=== PATIENT | female | born 1945 | race Caucasian/White ===

== ENCOUNTER 2017-05-05 15:04 | Emergency (ER) | payer MEDICARE, OTHER ==
[2017-05-05 15:06] VITALS: BP 164/78; PULSE 111; RESP 16; TEMP 98.6; O2SAT 98
--- NOTE | 2017-05-05 16:21 | RADRPT ---
EXAM DATE/TIME: 05/05/2017 15:59 [place] COMPARISON: No previous studies available for comparison. INDICATIONS : Syncopal episode 2 days ago. Continued cephalgia and dizziness. RADIATION DOSE: 56.35 CTDIvol (mGy) MEDICAL HISTORY : None SURGICAL HISTORY : None. ENCOUNTER: Initial ACUITY: 1 day PAIN SCALE: 4/10 LOCATION: Bilateral cranial TECHNIQUE: Multiple contiguous axial images were obtained of the head. Using automated exposure control and adj ustment of the mA and/or kV according to patient size, radiation dose was kept as low as reasonably a chievable to obtain optimal diagnostic quality images. DICOM format image data is available electro nically for review and comparison. FINDINGS: CEREBRUM: The ventricles are normal for age. No evidence of midline shift, mass lesion, hemorrhage or acute in farction. No extra-axial fluid collections are seen. Prominent sulci towards the vertex consistent w ith cortical atrophy. POSTERIOR FOSSA: The cerebellum and brainstem are intact. The 4th ventricle is midline. The cerebellopontine angle i s unremarkable. EXTRACRANIAL: The visualized portion of the orbits is intact. SKULL: The calvaria is intact. No evidence of skull fracture. CONCLUSION: Normal examination for a patient of this age. No acute intracranial abnormality. Abdias Taylor MD on May 05, 2017 at 16:17 Board Certified Radiologist. This report was verified electronically.
[2017-05-05 16:29] LABS: AUTOMATED NEUTROPHIL # 4.2 TH/MM3 (1.8-7.7); BASOPHIL % 0.4 % (0.0-2.0); EOSINOPHIL # 0.2 TH/MM3 (0-0.4); EOSINOPHIL % 2.2 % (0.0-4.0); HEMATOCRIT 41.5 % (35.0-46.0); HEMOGLOBIN 14.2 GM/DL (11.6-15.3); LYMPH % 34.7 % (9.0-44.0); LYMPHOCYTE # 2.7 TH/MM3 (1.0-4.8); MEAN CELL VOLUME 90.5 FL (80.0-100.0); MEAN CORPUSCULAR HEMOGLOBIN 31.1 PG (27.0-34.0); MEAN CORPUSCULAR HGB CONC 34.3 % (32.0-36.0); MEAN PLATELET VOLUME 7.2 FL (7.0-11.0); MONOCYTE # 0.6 TH/MM3 (0-0.9); NEUT % 54.7 % (16.0-70.0); PLATELET COUNT 316 TH/MM3 (150-450); RED BLOOD COUNT 4.59 MIL/MM3 (4.00-5.30); RED CELL DISTRIBUTION WIDTH 13.5 % (11.6-17.2); WHITE BLOOD COUNT 7.8 TH/MM3 (4.0-11.0)
[2017-05-05 16:42] LABS: INTERNATIONAL NORMALIZED RATIO 1.1 RATIO; PROTHROMBIN TIME - PATIENT 10.7 SEC (9.8-11.6)
[2017-05-05 16:56] LABS: ALBUMIN 4.2 GM/DL (3.4-5.0); AST (GOT) 24 U/L (15-37); BICARBONATE 24.9 MEQ/L (21.0-32.0); BLOOD UREA NITROGEN 10 MG/DL (7-18); CALCIUM 9.2 MG/DL (8.5-10.1); CHLORIDE 104 MEQ/L (98-107); CREATININE 0.92 MG/DL (0.50-1.00); GLOMERULAR FILTRATION RATE 60 ML/MIN (>89); GLUCOSE,RANDOM 93 MG/DL (74-106); SODIUM (NA) 136 MEQ/L (136-145)
[2017-05-05 16:58] LABS: ALT (GPT) 24 U/L (10-53)
[2017-05-05 17:01] LABS: ALKALINE PHOSPHATASE 85 U/L (45-117); TOTAL BILIRUBIN ADULT 0.7 MG/DL (0.2-1.0); TOTAL PROTEIN 7.3 GM/DL (6.4-8.2); TROPONIN I LESS THAN 0.02 NG/ML (0.02-0.05)
--- NOTE | 2017-05-05 17:16 | PD ---
HPI Chief Complaint: Neuro Symptoms/ Deficits Time Seen by Provider: 17:00 Travel History International Travel<30 days: No Contact w/Intl Traveler<30days: No Traveled to known affect area: No History of Present Illness HPI 71-year-old female presents emergency department at the request of urgent care after a suspected TIA that occurred Thursday at the [facility]. Patient states that she had a witnessed syncopal episode for an unknown amount of time and when she woke up, refuse to go to the hospital. At the time, patient said she felt nauseous without vomiting an has residual fatigue since event. Patient states that the symptoms are similar to her previous but since her previous episode resulted in transient one-sided weakness. Patient denies weakness, falls, head trauma. Patient is not on any blood thinners. Patient takes baby aspirin daily. States that currently she feels "tired with upper respiratory symptoms'. Patient states that she has had watery eyes with an occasional nonproductive cough. Denies chest pain or shortness of breath. States that she has not been completely compliant with her baby aspirin but since the incident, patient states compliance now. Patient denies chronic cardiac issues. States she has COPD as a tobacco user. Her primary care physician as Dr. Deleon she has not seen any specialist. 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 ) Hysterectomy: Yes Social History Alcohol Use: No Tobacco Use: Yes (1/2 ppd) Substance Use: No Allergies-Medications (Allergen,Severity, Reaction): Coded Allergies: ciprofloxacin (Verified Allergy, Unknown, 05/05/17) azithromycin (Verified Adverse Reaction, Unknown, nausea, 05/05/17) Reported Meds & Prescriptions Reported Meds & Active Scripts Active Prednisone 5 Mg Tab 5 Mg PO DAILY 5 Days Reported Pantoprazole (Pantoprazole Sodium) 40 Mg Tab 40 Mg PO DAILY Crestor (Rosuvastatin Calcium) 5 Mg Tab 5 Mg PO DAILY Pedro Aspirin Extra Strength (Aspirin) 500 Mg Tab 500 Mg PO DAILY PRN Benadryl Allergy (Diphenhydramine HCl) 25 Mg Tablet Loratadine-D 12 HR (Loratadine-Pseudoephedrine 12 HR) 5-120 Mg Tab 1 Tab PO BID Symbicort Inh (Budesonide/Formoterol Fumarate) 160-4.5 Mcg/Act Aero 2 Puff INH Q12HR Metaxalone 800 Mg Tab 800 Mg PO TID PRN Alprazolam 0.25 Mg Tab 0.25 Mg PO BID PRN Telmisartan 20 Mg Tab 20 Mg PO HS Review of Systems Except as stated in HPI: all other systems reviewed are Neg Physical Exam Narrative GENERAL: Well-developed well-nourished in no apparent distress, walking around the room comfortably. SKIN: Focused skin assessment warm/dry. HEAD: Atraumatic. Normocephalic. EYES: Pupils equal and round. No scleral icterus. Clear drainage ENT: No nasal bleeding or discharge. Mucous membranes pink and moist. NECK: Trachea midline. No JVD. CARDIOVASCULAR: Regular rate and rhythm. No murmur appreciated. RESPIRATORY: No accessory muscle use. Clear to auscultation. Breath sounds equal bilaterally. GASTROINTESTINAL: Abdomen soft, non-tender, nondistended. Hepatic and splenic margins not palpable. MUSCULOSKELETAL: No obvious deformities. No clubbing. No cyanosis. No edema. Homans sign negative bilaterally NEUROLOGICAL: Awake and alert. No obvious cranial nerve deficits. Motor grossly within normal limits. Normal speech. PSYCHIATRIC: Appropriate mood and affect; insight and judgment normal. Data Data Last Documented VS Vital Signs Date Time Temp Pulse Resp B/P (MAP) Pulse Ox O2 Delivery O2 Flow Rate FiO2 05/05/17 17:58 05/05/17 17:40 83 18 99 Room Air 05/05/17 15:06 98.6 Orders Orders Electrocardiogram (05/05/17 15:12) Prothrombin Time / Inr (Pt) (05/05/17 15:12) Act Partial Throm Time (Ptt) (05/05/17 15:12) Complete Blood Count With Diff (05/05/17 15:12) Comprehensive Metabolic Panel (05/05/17 15:12) Troponin I (05/05/17 15:12) Ct Brain W/O Iv Contrast(Rout) (05/05/17 15:12) Ed Discharge Order (05/05/17 17:51) Labs Laboratory Tests Test 05/05/17 15:20 White Blood Count 7.8 TH/MM3 Red Blood Count 4.59 MIL/MM3 Hemoglobin 14.2 GM/DL Hematocrit 41.5 % Mean Corpuscular Volume 90.5 FL Mean Corpuscular Hemoglobin 31.1 PG Mean Corpuscular Hemoglobin Concent 34.3 % Red Cell Distribution Width 13.5 % Platelet Count 316 TH/MM3 Mean Platelet Volume 7.2 FL Neutrophils (%) (Auto) 54.7 % Lymphocytes (%) (Auto) 34.7 % Monocytes (%) (Auto) 8.0 % Eosinophils (%) (Auto) 2.2 % Basophils (%) (Auto) 0.4 % Neutrophils # (Auto) 4.2 TH/MM3 Lymphocytes # (Auto) 2.7 TH/MM3 Monocytes # (Auto) 0.6 TH/MM3 Eosinophils # (Auto) 0.2 TH/MM3 Basophils # (Auto) 0.0 TH/MM3 CBC Comment DIFF FINAL Differential Comment Prothrombin Time 10.7 SEC Prothromb Time International Ratio 1.1 RATIO Activated Partial Thromboplast Time 25.1 SEC Blood Urea Nitrogen 10 MG/DL Creatinine 0.92 MG/DL Random Glucose 93 MG/DL Total Protein 7.3 GM/DL Albumin 4.2 GM/DL Calcium Level 9.2 MG/DL Alkaline Phosphatase 85 U/L Aspartate Amino Transf (AST/SGOT) 24 U/L Alanine Aminotransferase (ALT/SGPT) 24 U/L Total Bilirubin 0.7 MG/DL Sodium Level 136 MEQ/L Potassium Level 3.9 MEQ/L Chloride Level 104 MEQ/L Carbon Dioxide Level 24.9 MEQ/L Anion Gap 7 MEQ/L Estimat Glomerular Filtration Rate 60 ML/MIN Troponin I LESS THAN 0.02 NG/ML MDM Medical Decision Making Medical Screen Exam Complete: Yes Emergency Medical Condition: Yes Differential Diagnosis TIA, CVA, upper respiratory infection, pneumonia, syncope Narrative Course 71-year-old female presents emergency department at the request of urgent care after a suspected TIA that occurred Thursday at the [facility]. Patient states that she had a witnessed syncopal episode for an unknown amount of time and when she woke up, refuse to go to the hospital. At the time, patient said she felt nauseous without vomiting an has residual fatigue since event. Patient states that the symptoms are similar to her previous but since her previous episode resulted in transient one-sided weakness. Patient denies weakness, falls, head trauma. Patient is not on any blood thinners. Patient takes baby aspirin daily. States that currently she feels "tired with upper respiratory symptoms'. Patient states that she has had watery eyes with an occasional nonproductive cough. Denies chest pain or shortness of breath. States that she has not been completely compliant with her baby aspirin but since the incident, patient states compliance now. Patient denies chronic cardiac issues. States she has COPD as a tobacco user. Her primary care physician as Dr. Deleon she has not seen any specialist. Vital signs-initially tachycardic, decreased to 79BPM with evaluation. Physical exam findings-clear bilateral otorrhea, postnasal drip. No focal neuro deficits, patient walks around room normally without effort. Pt will be discharged with prednisone for her URI symptoms. Patient will be discharged with strict instructions to return if worsening or persistent symptoms. Diagnosis Primary Impression: Syncope Qualified Codes: R55 - Syncope and collapse Additional Impression: COPD (chronic obstructive pulmonary disease) Qualified Codes: J43.8 - Other emphysema Referrals: [facility] Neurologist Primary Care Physician Additional Instructions: Follow up with your primary care physician within 2-3 days. If your symptoms persist or worsen, return to the emergency department. Follow-up with a menu planner and neurologist regarding your TIAs. If you develop increased headache, nausea, vomiting return to the emergency department. Scripts Prednisone (Prednisone) 5 Mg Tab 5 MG PO DAILY for 5 Days, #5 TAB 0 Refills Prov: Jennifer Sánchez 05/05/17 Disposition: 01 DISCHARGE HOME Condition: Stable Jennifer Sánchez May 05, 2017 17:16
[2017-05-05 17:40] VITALS: BP 134/76; PULSE 83; RESP 18; O2SAT 99
[2017-05-05] MEDS ORDERED: META1TAB19 PO (17:46)
[2017-05-05] MEDS ORDERED: ALPR0.25 PO (17:46)
[2017-05-05] MEDS ORDERED: TELM5TAB PO (17:46)
[2017-05-05] MEDS ORDERED: SYMB160A INH (17:46)
[2017-05-05] MEDS ORDERED: PANT40TA3 PO (17:46)
[2017-05-05] MEDS ORDERED: LORA5TAB3 PO (17:46)
[2017-05-05] MEDS ORDERED: ASPI1TAB62 PO (17:46)
[2017-05-05] MEDS ORDERED: BENA25TA6 (17:46)
[2017-05-05] MEDS ORDERED: ROSU5 PO (17:46)
[2017-05-05] MEDS ORDERED: PRED5TAB PO (17:51)
--- NOTE | 2017-05-05 19:50 | PD ---
Data Data Last Documented VS Vital Signs Date Time Temp Pulse Resp B/P (MAP) Pulse Ox O2 Delivery O2 Flow Rate FiO2 05/05/17 17:58 05/05/17 17:40 83 18 99 Room Air 05/05/17 15:06 98.6 Orders Orders Electrocardiogram (05/05/17 15:12) Prothrombin Time / Inr (Pt) (05/05/17 15:12) Act Partial Throm Time (Ptt) (05/05/17 15:12) Complete Blood Count With Diff (05/05/17 15:12) Comprehensive Metabolic Panel (05/05/17 15:12) Troponin I (05/05/17 15:12) Ct Brain W/O Iv Contrast(Rout) (05/05/17 15:12) Ed Discharge Order (05/05/17 17:51) Labs Laboratory Tests Test 05/05/17 15:20 White Blood Count 7.8 TH/MM3 Red Blood Count 4.59 MIL/MM3 Hemoglobin 14.2 GM/DL Hematocrit 41.5 % Mean Corpuscular Volume 90.5 FL Mean Corpuscular Hemoglobin 31.1 PG Mean Corpuscular Hemoglobin Concent 34.3 % Red Cell Distribution Width 13.5 % Platelet Count 316 TH/MM3 Mean Platelet Volume 7.2 FL Neutrophils (%) (Auto) 54.7 % Lymphocytes (%) (Auto) 34.7 % Monocytes (%) (Auto) 8.0 % Eosinophils (%) (Auto) 2.2 % Basophils (%) (Auto) 0.4 % Neutrophils # (Auto) 4.2 TH/MM3 Lymphocytes # (Auto) 2.7 TH/MM3 Monocytes # (Auto) 0.6 TH/MM3 Eosinophils # (Auto) 0.2 TH/MM3 Basophils # (Auto) 0.0 TH/MM3 CBC Comment DIFF FINAL Differential Comment Prothrombin Time 10.7 SEC Prothromb Time International Ratio 1.1 RATIO Activated Partial Thromboplast Time 25.1 SEC Blood Urea Nitrogen 10 MG/DL Creatinine 0.92 MG/DL Random Glucose 93 MG/DL Total Protein 7.3 GM/DL Albumin 4.2 GM/DL Calcium Level 9.2 MG/DL Alkaline Phosphatase 85 U/L Aspartate Amino Transf (AST/SGOT) 24 U/L Alanine Aminotransferase (ALT/SGPT) 24 U/L Total Bilirubin 0.7 MG/DL Sodium Level 136 MEQ/L Potassium Level 3.9 MEQ/L Chloride Level 104 MEQ/L Carbon Dioxide Level 24.9 MEQ/L Anion Gap 7 MEQ/L Estimat Glomerular Filtration Rate 60 ML/MIN Troponin I LESS THAN 0.02 NG/ML [facility] Supervised Visit with KEON: Yes Narrative Course The history, exam, and medical decision-making in the associated midlevel provider note were completed with my assistance. I reviewed and agree with the findings presented. I attest that I had a [id number] encounter with the patient on the same day, and personally performed and documented my assessment and findings in the medical record. *My assessment and Findings: This is a 71-year-old female who presents the emergency department having had an episode of syncope 3 days ago [place] She says that since then she has had cough some rhinorrhea and generalized weakness. Labs are obtained which are reassuring and CT scan is unremarkable. Gross neurologic exam is normal. Patient reports she had a history of a TIA in the past. She had no stroke like symptoms during this episode and it was purely syncopal in nature. I had a long conversation with the patient. She really wants to go home which I think is reasonable but she requires outpatient follow-up. [place] from [place] and is not returning to [place] until July and her primary care physician resides there. I urged her to follow-up with a primary care physician and I gave her follow- up with [facility]. I explained to her that she requires an additional syncope workup as an outpatient. She expressed understanding. I think it safe for her to be discharged. Diagnosis Primary Impression: Syncope Additional Impression: COPD (chronic obstructive pulmonary disease) Referrals: [facility] Neurologist Primary Care Physician Patient Instructions: General Instructions, Syncope in Older Adults (ED) Departure Forms: Tests/Procedures Additional Instruction: Follow up with your primary care physician within 2-3 days. If your symptoms persist or worsen, return to the emergency department. Follow-up with a head of digital and neurologist regarding your TIAs. If you develop increased headache, nausea, vomiting return to the emergency department. Scripts Prednisone (Prednisone) 5 Mg Tab 5 MG PO DAILY for 5 Days, #5 TAB 0 Refills Prov: Jennifer Sánchez 05/05/17 Disposition: 01 DISCHARGE HOME Condition: Stable Cris Alcala MD May 05, 2017 19:50
--- NOTE | 2017-05-09 13:19 | EKG ---
Date Performed: 05/05/2017 Time Performed: 15:20:02 PTAGE: 71 years EKG: Sinus rhythm NORMAL ECG NO PREVIOUS TRACING DOCTOR: Stef Ríos Interpretating Date/Time 05/09/2017 13:18:48
== END 2017-05-05 17:58 | disposition home or self-care (01) ==
LOC: NEPC 15:04
DX: R55 Syncope and collapse (principal); J44.9 Chronic obstructive pulmonary disease, unspecified; F17.200 Nicotine dependence, unspecified, uncomplicated
CPT/HCPCS: 70450; 80053; 84484; 85025; 85610; 85730; 93005